=== PATIENT | male | born 1955 | race Caucasian/White ===

== ENCOUNTER 2017-06-07 10:20 | Emergency (ER) | payer SELFPAY | END 2017-06-07 10:39 | disposition left against medical advice (07) | LOC: ER 10:20 | DX: R10.9 Unspecified abdominal pain (principal); I10 Essential (primary) hypertension ==

== ENCOUNTER 2017-06-07 14:44 | Emergency (ER) ==
[~2017-06-07] VITALS: Ht 177.8 cm; Wt 99.8 kg
[2017-06-07] MEDS ORDERED: MORPHINE SULFATE 4 MG/ML SYR IV STA (14:59)
[2017-06-07] MEDS ORDERED: SODIUM CHLORIDE 0.9% 1000ML 1,000 ML IV STA (14:59)
[2017-06-07] MEDS ORDERED: ONDANSETRON HCL INJ 2 MG/ML VIAL IV STA (14:59)
[2017-06-07] MEDS ORDERED: DICYCLOMINE HCL 20 MG/2 ML VIAL IM ONE (15:00)
== END 2017-06-07 15:11 | disposition left against medical advice (07) ==
LOC: ER 14:44
DX: R10.9 Unspecified abdominal pain (principal)

== ENCOUNTER 2018-06-12 23:48 | Emergency (ER) | payer OTHER, MEDICARE ==
[~2018-06-12] VITALS: Ht 177.8 cm; Wt 99.8 kg
--- OUTSIDE RECORDS SUMMARY | 2018-06-12 23:50 | XMS REPORT | Summary of Care ---
Author Author [facility] [place] Organization [facility] [place] Address Unknown Phone Unavailable Encounter HQ Encntr_alirosas(FIN) [id number] Date(s): 07/31/16 - 07/31/16 [facility] [place] [address] [place] [phone] Discharge Disposition: Home or Self Care Attending Physician: Arnie Quintero MD Vital Signs No data available for this section Problem List No data available for this section Allergies, Adverse Reactions, Alerts No data available for this section Medications No data available for this section Results No data available for this section Immunizations No data available for this section Procedures No data available for this section Social History No data available for this section Assessment and Plan No data available for this section
--- OUTSIDE RECORDS SUMMARY | 2018-06-12 23:50 | XMS REPORT | Continuity of Care Document ---
Author Author [facility] Interface Address Unknown Phone Unavailable Problems Problem Status Onset Date Classification Date Reported Comments Source M75.120 - COMPLETE ROTATR-CUFF TEAR/RUPT Active 07/27/2016 [facility] [place] Medications Medication Details Route Status Patient Instructions Ordering Provider Order Date Source Allergies, Adverse Reactions, Alerts Substance Category Reaction Severity Reaction type Status Date Reported Comments Source Immunizations Immunization Date Given Site Status Last Updated Comments Source Results Order Name Results Value Reference Range Date Interpretation Comments Source Vital Signs Vital Sign Value Date Comments Source Encounters Location Location Details Encounter Type Encounter Number Reason For Visit Attending Provider ADM Date DC Date Status Source [facility] [place] Out[facility] Di[facility] Services [id number] Arnie Ann Jr 07/31/2016 2016 [facility] [place] Procedures Procedure Code Date Perfomer Comments Source
[2018-06-13] MEDS ORDERED: KETOROLAC TROMETHAMINE 30 MG/ML VIAL IV STA (01:11)
[2018-06-13] MEDS ORDERED: SODIUM CHLORIDE 0.9% 1000ML 1,000 ML IV SCH (01:15)
--- NOTE | 2018-06-13 01:36 | Diagnostic Imaging Report ---
EXAM: ABDOMEN ACUTE SERIES W/PA CXR DATE: 06/13/2018 12:45 AM INDICATION: Pain COMPARISON: None FINDINGS: Chest: The cardiomediastinal silhouette is unremarkable. There is mild biapical scarring with no focal consolidation. Well-circumscribed calcific density left lung base could represent bone island versus granuloma. Abdomen: No pneumoperitoneum or small bowel obstructive change. Moderate stool burden. Stimulator device and postsurgical changes overlie lower spine. There is a calcific density overlying the liver. Phleboliths overlie pelvis. IMPRESSION: No definite acute finding. See above. Signed by: Dr. Stephan Singh MD on 06/13/2018 1:33 AM
[2018-06-13] MEDS ORDERED: DICYCLOMINE HCL 20 MG/2 ML VIAL IM ONE (02:15)
== END 2018-06-13 03:07 | disposition home or self-care (01) ==
LOC: ER 23:48
DX: R10.32 Left lower quadrant pain (principal); K59.00 Constipation, unspecified; I48.91 Unspecified atrial fibrillation; G89.29 Other chronic pain
CPT/HCPCS: 74022; 96372; 96374; 99283; J0500; J1885; J7030

== ENCOUNTER → 2020-02-04 | Emergency (ER) | payer MEDICARE ==
[~2020-02-04] VITALS: Ht 177.8 cm; Wt 99.8 kg
--- NOTE | 2020-02-04 22:21 | Emergency Department Note ---
History of Present Illnes History of Present Illness Chief Complaint: Chest Pain History of Present Illness This is a 64 year old male ED WITH ANXIETY TO THE TRIAGE WINDOW STATING HIS CHEST FEELS VERY TIGHT. IMMEDIATELY SENT TO A ROOM AND DID STAT EKG- GIVEN TO MD FOR REVIEW-NO STEMI. PATIENT STATES HE IS REALLY UNABLE TO LAY DOWN BECAUSE HE RAN OUT OF HIS [employer] YESTERDAY AND FEELS VERY ANXIOUS. STATES HIS CHEST TIG HTNESS IS SCALE 2/10; HOWEVER, BACK PAIN IS 8/10. PATIENT REPEATEDLY SAYS HE NEEDS SOMETHING FOR PAIN AND FOR ANXIETY; REASSURANCE PROVIDED TO PATIENT-CHARGE NURSE IN ROOM WELL. WHEN INQUIRED ABOUT COVID EXPOSURE PATIENT STATED NO, IN ADDITION, HE STATES THAT IF HE HAPPENS TO HAVE ONE ORDERED HE WILL REFUSE. ALSO, PATIENT STATES HE GOT SO ANXIOUS HE TOOK AN EXTRA DOSE OF CARDIZEM BEFORE COMING TO THE ED. HAS TAKEN TWO TYLENOL#3'S TODAY.PT TOOK 2 TYLENOL #3 AT 230 PM AND SYMPTOMS STARTED ABOUT 1.5 HOURS LATER. Historian: Patient Arrival Mode: Car Onset (how long ago): hour(s) (5) Location: CHEST Quality: TIGHTNESS AND SOB Radiation: Reports non-radiation Severity: mild Onset quality: sudden Duration (how long): hour(s) (5) Timing of current episode: constant Progression: unchanged Chronicity: new Context: Denies recent illness, Denies recent surgery, Denies trauma/injury Relieving factors: none Exacerbating factors: none Associated symptoms: Reports denies other symptoms Treatments prior to arrival: none Past Medical/Family History Physician Review I have reviewed the patient's past medical and family history. Any updates have been documented here. Past Medical History Recent Fever: No Clinical Suspicion of Infectio: No New/Unexplained Change in Ment: No Past Medical History: Hypertension, A-Fib Other Medical History: depression BACK PAIN CHRONIC SCIATIC Other Surgery: spinal fusion discectomy spinal taps chronic back pain 2 rotator cuff surgeries Social History Smoking Cessation: Never Smoker Counseling Performed: No Alcohol Use: None Any Illegal Drug Use: No Physically hurt or threatened: No Other Last Tetanus: unknown Review of Systems Review of Systems Constitutional: Reports no symptoms EENTM: Reports no symptoms Cardiovascular: Reports as per HPI Respiratory: Reports as per HPI Gastrointestinal: Reports no symptoms Genitourinary: Reports no symptoms Musculoskeletal: Reports no symptoms Integumentary: Reports no symptoms Neurological: Reports no symptoms Psychological: Reports no symptoms Endocrine: Reports no symptoms Hematological/Lymphatic: Reports no symptoms Physical Exam Related Data Allergies: Coded Allergies: No Known Allergies (Unverified , 06/07/17) Triage Vital Signs Vital Signs Date Time Temp Pulse Resp B/P (MAP) Pulse Ox O2 Delivery O2 Flow Rate FiO2 02/04/20 21:44 98.7 63 24 187/104 100 02/04/20 22:08 Room Air Vital signs reviewed: Yes Physical Exam CONSTITUTIONAL Constitutional: Present well-developed, Present well-nourished, Present other (ANXIOUS) HENT HENT: Present normocephalic, Present atraumatic, Present oropharynx clear/moist, Present nose normal HENT L/R: Present left ext ear normal, Present right ext ear normal EYES Eyes: Reports PERRL, Reports conjunctivae normal NECK Neck: Present ROM normal PULMONARY Pulmonary: Present effort normal, Present breath sounds normal CARDIOVASCULAR Cardiovascular: Present irregular rhythm, Present heart sounds normal, Present capillary refill normal, Present normal rate GASTROINTESTINAL Abdominal: Present soft, Present nontender, Present bowel sounds normal GENITOURINARY Genitourinary: Present exam deferred SKIN Skin: Present warm, Present dry MUSCULOSKELETAL Musculoskeletal: Present ROM normal NEUROLOGICAL Neurological: Present alert, Present oriented x 3, Present no gross motor or se nsory deficits PSYCHOLOGICAL Psychological: Present mood/affect normal, Present judgement normal Procedures 12 Lead ECG Interpretation ECG Interpretation : ECG: 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 ED physician Date: Feb 04, 2020 Time: 21:41 Rhythm: atrial fibrillation Rate: normal BPM: 65 QRS axis: normal ST segments normal: Yes T waves normal: Yes Other findings: no other findings Clinical Impression: abnormal ECG Assessment & Plan Medical Decision Making MDM PT WITH SOB AND CHEST TIGHTNESS AFTER TAKING 2 TYLENOL #3 AT 230 PM CBC,CMP, EKG, CXR, CARDIAC ENZYMES ORDERED TO EVAL FOR MYOCARDIAL INFARCTION, ELECTROLYTE ABNORMALITY, PNEUMONIA, Assessment & Plan Final Impression: (1) Chest pain (2) Anxiety Depart Disposition: AGAINST MEDICAL ADVICE Last Vital Signs Date Time Temp Pulse Resp B/P (MAP) Pulse Ox O2 Delivery O2 Flow Rate FiO2 02/04/20 22:08 63 24 187/104 100 Room Air 02/04/20 21:44 98.7 STEPHEN BERNABE MD Feb 04, 2020 22:21
--- NOTE | 2020-02-04 22:29 | NUR ---
PATIENT SIGNED AMA FORMS AFTER SEEING MD GIFTY INFORMED IN FULL, CHARGE NURSE IS AWARE. ASKED PATIENT IF THIS NURSE DID ANYTHING TO OFFEND HIM, HE RESPONDED I DID NOT DO ANHYTHING WRONG. OFFERED A RESOLUTION TO HIM STAYING, PATIENT REFUSED. AMA SIGNED IN FULL AND PLACED IN CHART.
--- OUTSIDE RECORDS SUMMARY | 2020-02-04 23:25 | XMS REPORT | Continuity of Care Document ---
Author Author [facility] Organization [facility] Address Unknown Phone Unavailable Care Team Providers Care Realtime Court Reporter Name Role Phone [employer] Unavailable Un available Problems Problem Status Onset Date Classification Date Reported Comments Source M75.120 - COMPLETE ROTATR-CUFF TEAR/RUPT Active 07/27/2016 [facility] [place] Medications No Data Provided for This Section Allergies, Adverse Reactions, Alerts No Known Medication Allergies Immunizations No Data Provided for This Section Results No Data Provided for This Section Pathology Reports No Data Provided for This Section Diagnostic Reports No Data Provided for This Section Consultation Notes No Data Provided for This Section Discharge Summaries No Data Provided for This Section History and Physicals No Data Provided for This Section Vital Signs No Data Provided for This Section Encounters Location Location Details Encounter Type Encounter Number Reason For Visit Attending Provider ADM Date DC Date Status Source [facility] [place] [facility] Di[facility] Services [id number] Arnie Ann Jr 07/31/2016 2016 [facility] [place] Procedures No Data Provided for This Section Assessment and Plan No Data Provided for This Section Plan of Care No Data Provided for This Section Social History Social History Date Source No data available for this section 2016 [facility] [place] Family History No Data Provided for This Section Advance Directives No Data Provided for This Section Functional Status No Data Provided for This Section
--- OUTSIDE RECORDS SUMMARY | 2020-02-04 23:25 | XMS REPORT | Continuity of Care Document ---
Author Author [facility] t Organization [facility] Address [address] [place] [address] Phone Unavailable Care Team Providers Care Information Officer Name Role Phone NO, PCP PCP Unavailable King RONN, Gosia Attphys Unavailable Delmar Franco MD Attphys Mercy Smith MA Attphys Unavailable Maikol BRODY T Marissa Attphys Unavailable Pavel POWER Attphys Unavailable Marino Ann Jr Attphys Payers Payer Name Policy Type Policy Number Effective Date Expiration Date S yvrose MURGUIA MEDICAREHUMANA MEDICARE PPO/PFFS/ERS [id number] 2010 00:00:00 Jc Tom Self Pay [facility] Problems Condition Name Condition Details Condition Category Status Onset Date Resolution Date Last Treatment Date Treating Clinician Comments Source Other chronic pain Other chronic pain Disease Active 2019-03-02 00:00:0 0 Jc Tom Chronic prescription opiate use Chronic prescription opiate use Dis ease Active 2019-03-02 00:00:00 Jc Tom Other skin changes Other skin changes Disease Active 2019-03-02 00:00:0 0 Jc Tom Secondary hypertension Secondary hypertension Disease Active 2018-03-20 00:00:[address] Incomplete tear of left rotator cuff Incomplete tear of left rotator cuff Disease Active 2018-03-20 00:00:00 Jc Tom Rash Rash Disease Active 2018-03-20 00:00:00 Jc Tom Migraine Migraine Disease Active 2017-04-12 00:00:00 Jc Cardonaist Bilateral lumbar radiculopathy Bilateral lumbar radiculopathy Disea se Active 2016-12-20 00:00:00 Jc Cardonaist Myalgia Myalgia Disease Active 2016-12-20 00:00:00 Jc Tom Muscle spasm Muscle spasm Disease Active 2016-12-20 00:00:00 Jc Cardonaist Osteoarthritis of both shoulders Osteoarthritis of both shoulder s Disease Active 2016-12-20 00:00:00 [place] Cervical radicular pain Cervical radicular pain Disease Active 2016-12-20 00:00:[address] Vitamin D deficiency Vitamin D deficiency Disease Active 00:00:00 Jc Cardonaist M75.120 - COMPLETE ROTATR-CUFF TEAR/RUPT M75.120 - COMPLETE ROTATR-CUFF TEAR/RUPT Active 07/27/2016 [facility] [place] Diagnosis Active 2016-07-27 00:01:00 2016-07-31 11:44:00 [facility] Allergies, Adverse Reactions, Alerts Allergy Name Allergy Type Status Severity Reaction(s) Onset Date Inacti ve Date Treating Clinician Comments Source No Known Allergies DA Active U 2018-06-11 00:00:00 [facility] Gabapentin Propensity to adverse reactions to drug Active Other (See Comments) 2016-12-20 00:00:00 [place] bad emotionally Jc Tom Social History Social Habit Start Date Stop Date Quantity Comments Source History of tobacco use Cigarette Smoker [facility] Sex Assigned At Dorothy Tom Exposure to SARS-CoV-2 (event) Not sure [place] [facility] Cigarettes smoked current (pack per day) - Reported 00:00:00 2019-05-23 00:00:00 [facility] Tobacco use and exposure 2019-05-23 00:00:00 2019-05-23 00:00:00 Form er user [place] [facility] Tobacco Comment 2016-12-20 00:00:00 2016-12-20 00:00:00 stopped thirty years ago Jc Tom Social History 2016 04:59:00 2016 04:59:00 [facility] Sm[facility] Status Start Date Stop Date Source Current every day smoker 2019-05-23 00:00:00 Dorothy Tom Medications Ordered Medication Name Filled Medication Name Start Date Stop Da te Current Medication? Ordering Clinician Indication Dosage Frequency Signature (SIG) Comments Components Source tiZANidine (ZANAFLEX) 4 MG tablet 2020-01-28 00:00:00 Ye s 4mg Q.[id number] Take 1 tablet (4 mg total) by mouth 3 (t hree) times a day. Jc Tom traMADoL (ULTRAM) 50 mg tablet 2020-01-24 00:00:00 2020-01-09 1 00:00:00 No chronic pain chronic pain. 1-2 tabs PO Q8H PRN pain Jc Tom acetaminophen-codeine (TYLENOL WITH CODEINE #3) 300-30 mg pe r tablet 2020-01-11 00:00:00 2020-01-18 23:59:00 No acute pain 1{tbl} Q4H Take 1 tablet by mouth every 4 (four) hours as needed for moderate pain for up to 7 days .acute pain. Jc Tom HYDROcodone-acetaminophen (NORCO) 10-325 mg per tablet 2020-01-11 00:00:00 2020-01-02 00:00:00 No chronic pain 2{tbl} Q8H Jacques e 2 tablets by mouth every 8 (eight) hours as needed for moderate pain for up to 30 days .chronic pain. Jc Tom HYDROcodone-acetaminophen (NORCO) 10-325 mg per tablet 2020-01-10 00:00:00 2020-01-11 00:00:00 No chronic pain 2{tbl} Q8H Jacques e 2 tablets by mouth every 8 (eight) hours as needed for moderate pain for up to 30 days .chronic pain. Jc Tom HYDROcodone-acetaminophen (NORCO) 10-325 mg per tablet 2019-12-12 00:00:00 2020-01-28 00:00:00 No chronic pain 2{tbl} Q8H Jacques e 2 tablets by mouth every 8 (eight) hours as needed for moderate pain for up to 30 days .chronic pain. Jc Tom gabapentin (NEURONTIN) 300 mg capsule 2019-11-28 00:00:00 Y es Take three capsules three times a day Jc Tom traMADoL (ULTRAM) 50 mg tablet 2019-11-28 00:00:00 2020-08-2 6 00:00:00 No chronic pain chronic pain. 1-2 tabs PO Q8H PRN pain Jc Tom gabapentin (NEURONTIN) 300 mg capsule 2019-11-16 00:00:00 Y es TAKE 3 CAPSULES (900 MG) THREE TIMES A DAY [place] HYDROcodone-acetaminophen (NORCO) 10-325 mg per tablet 2019-11-12 00:00:00 2019-11-28 00:00:00 No chronic pain 2{tbl} Q8H Jacques e 2 tablets by mouth every 8 (eight) hours as needed for moderate pain for up to 30 days .chronic pain. Jc Tom HYDROcodone-acetaminophen (NORCO) 10-325 mg per tablet 2019-11-07 00:00:00 2019-11-12 00:00:00 No chronic pain 2{tbl} Q8H Jacques e 2 tablets by mouth every 8 (eight) hours as needed for moderate pain for up to 30 days .chronic pain. Jc Tom tiZANidine (ZANAFLEX) 4 MG tablet 2019-10-08 00:00:00 2019 00:00:00 No 4mg Q.[id number] Take 1 ta blet (4 mg total) by mouth 3 (three) times a day. Jc Tom traMADoL (ULTRAM) 50 mg tablet 2019-10-08 00:00:00 2019-11-08 2 00:00:00 No chronic pain 50mg Q6H Take 1 tablet (50 mg total) by mouth every 6 (six) hours as needed for moderate pain for up to 30 days .chronic pain. Jc Tom gabapentin (NEURONTIN) 300 mg capsule 2019-10-08 00:00 :00 2019-11-16 00:00:00 No TAKE 3 CAPSULES BY MOUTH THREE TIMES FARAZ LY cJ Tom gabapentin (NEURONTIN) 300 mg capsule 2019-10-08 00:00 :00 2019-11-07 00:00:00 No TAKE 3 CAPSULES BY MOUTH THREE TIMES FARAZ LY Jc Tom HYDROcodone-acetaminophen (NORCO) 10-325 mg per tablet 2019-10-08 00:00:00 2019-11-07 00:00:00 No chronic pain 2{tbl} Q6H Jacques e 2 tablets by mouth every 6 (six) hours as needed for moderate pain for up to 30 days .chronic pain. Max Daily Amount: 8 tablets Jc gill gabapentin (NEURONTIN) 300 mg capsule 2019-10-08 00:00 :2019-10-08 00:00:00 No TAKE 3 CAPSULES BY MOUTH THREE TIMES FARAZ LY Jc Tom HYDROcodone-acetaminophen (NORCO) 10-325 mg per tablet 2019-09-14 00:00:2019-11-07 00:00:00 No chronic pain 2{tbl} Q8H Jacques e 2 tablets by mouth every 8 (eight) hours as needed for moderate pain for up to 30 days .chronic pain. Jc Tom HYDROcodone-acetaminophen (NORCO) 10-325 mg per tablet 2019-09-14 00:00:00 2019-09-10 00:00:00 No chronic pain 2{tbl} Q8H Jacques e 2 tablets by mouth every 8 (eight) hours as needed for moderate pain for up to 30 days .chronic pain. Jc Tom gabapentin (NEURONTIN) 300 mg capsule 2019-09-13 00:00 :00 2019-10-08 00:00:00 No TAKE 3 CAPSULES BY MOUTH THREE TIMES FARAZ LY Jc Tom traMADoL (ULTRAM) 50 mg tablet 2019-09-10 00:00:00 00:00:00 No chronic pain 50mg Q6H Take 1 tablet (50 mg total) by mouth every 6 (six) hours as needed for moderate pain for up to 30 days .chronic pain. Jc Tom HYDROcodone-acetaminophen (NORCO) 10-325 mg per tablet 2019-09-10 00:00:00 2019-10-08 00:00:00 No chronic pain 2{tbl} Q6H Jacques e 2 tablets by mouth every 6 (six) hours as needed for moderate pain for up to 30 days .chronic pain. Max Daily Amount: 8 tablets Jc gill HYDROcodone-acetaminophen (NORCO) 10-325 mg per tablet 2019-08-29 00:00:00 2019-09-10 00:00:00 No chronic pain 2{tbl} Q8H Jacques e 2 tablets by mouth every 8 (eight) hours as needed for moderate pain for up to 30 days .chronic pain. Jc Tom gabapentin (NEURONTIN) 300 mg capsule 2019-08-14 00:00 :00 2019-09-13 00:00:00 No Take three po tid [place] traMADoL (ULTRAM) 50 mg tablet 2019-08-14 00:00:00 4 00:00:00 No chronic pain 50mg Q6H Take 1 tablet (50 mg total) by mouth every 6 (six) hours as needed for moderate pain for up to 30 days .chronic pain. Jc Tom HYDROcodone-acetaminophen (NORCO) 10-325 mg per tablet 2019-08-14 00:00:00 2019-08-28 00:00:00 No chronic pain 1{tbl} Q6H Jacques e 1 tablet by mouth every 6 (six) hours as needed for moderate pain for up to 30 days .chronic pain. Max Daily Amount: 4 tablets Jc gill traMADoL (ULTRAM) 50 mg tablet 2019-08-13 00:00:00 4 00:00:00 No chronic pain chronic pain. TAKE 1 TO 2 TABLET S EVERY EIGHT HOURS NEEDED Jc Tom tiZANidine (ZANAFLEX) 4 MG tablet 2019-05-23 00:00:00 2019 00:00:00 No 4mg Q.[id number] Take 1 ta blet (4 mg total) by mouth 3 (three) times a day. Jc Tom gabapentin (NEURONTIN) 800 mg tablet 2019-05-23 00:00: 00 2019-09-13 00:00:00 No 800mg Q.4781749804170621341Z Take 1 tablet (800 mg total) by mouth 3 (three) times a day. Jc Tom traMADol (ULTRAM) 50 mg tablet 2019-05-23 00:00:00 6 00:00:00 No chronic pain chronic pain. TAKE 1 TO 2 TABLET S EVERY EIGHT HOURS NEEDED Jc Tom gabapentin (NEURONTIN) 800 mg tablet 2019-03-02 00:00: 2019-05-23 00:00:00 No 800mg Q.2999547426529003448K Take 1 tablet (800 mg total) by mouth 3 (three) times a day. Jc Tom tiZANidine (ZANAFLEX) 4 MG tablet 2019-03-02 00:00:00 2019 00:00:00 No 4mg Q.2349421091326071374A Take 1 ta blet (4 mg total) by mouth 3 (three) times a day. Jc Tom traMADol (ULTRAM) 50 mg tablet 2019-03-02 00:00:00 2019-05-09 00:00:00 No chronic pain chronic pain. TAKE 1 TO 2 TABLET S EVERY EIGHT HOURS NEEDED Jc Tom traMADol (ULTRAM) 50 mg tablet 2018-12-04 00:00:00 2019-03-02 00 :00:00 No TAKE 1 TO 2 TABLETS EVERY EIGHT HOURS NEEDED Jc Tom gabapentin (NEURONTIN) 800 mg tablet 2018-12-04 00:00: 00 2019-03-02 00:00:00 No 800mg Q.2575827626549045965I Take 1 tablet (800 mg total) by mouth 3 (three) times a day. Jc Tom tiZANidine (ZANAFLEX) 4 MG tablet 2018-12-04 00:00:00 2018 00:00:00 No 4mg Q.5994023352200990033H Take 1 ta blet (4 mg total) by mouth 3 (three) times a day. Jc Tom tiZANidine (ZANAFLEX) 4 MG tablet 2018-11-06 00:00:00 2019 00:00:00 No TAKE 1 TABLET THREE TIMES A DAY Jc Tom naloxone 4 mg/actuation spray,non-aerosol 2018-06-19 00:00:00 Yes One spray in one nostril, may repeat every 2 to 3 minutes in alternating nostrils until medical assistance is available Jc Tom ibuprofen (ADVIL,MOTRIN) 200 MG tablet 2018-03-20 14:16:49 Yes 600mg Q8H Take 600 mg by mouth every 8 (eight) hours as needed for mild pa in. Jc Tom HYDROcodone-acetaminophen (NORCO) 10-325 mg per tablet 2017-12-28 00:00:00 2019-08-28 00:00:00 No 2{tbl} Q8H Take 2 tablets by mouth every 8 (eight) hours as needed for moderate pain for up to 90 days Earliest Fill Date: 12/28/17. Jc Tom minoxidil (LONITEN) 2.5 MG tablet 2017-09-12 00:00:00 Yes TK 1 T PO QD Jc Tom XARELTO 20 mg tablet 2017-08-05 00:00:00 Yes Jc Tom terazosin (HYTRIN) 2 MG capsule 2017 00:00:00 Yes TK ONE C PO BID Jc Tom clonIDINE HCl (CATAPRES) 0.2 MG tablet 2017-07-29 00:00:00 Yes Jc Tom QUEtiapine (SEROquel) 300 MG tablet 2017-03-05 00:00:00 Yes TK 1 T PO QHS Jc Tom losartan (COZAAR) 100 MG tablet 2017-01-13 00:00:00 Yes 100mg QD Take 100 mg by mouth once daily. Jc thomas diltiazem CD (CardIZEM CD) 240 MG 24 hr capsule 2016-12-23 00:00 :00 Yes 240mg QD Take 240 mg by mouth once daily. Jc Tom Vital Signs Vital Name Observation Time Observation Value Comments Source Systolic blood pressure 2019-05-23 13:17:00 125 mm[Hg] Jc Tom Diastolic blood pressure 2019-05-23 13:17:00 81 mm[Hg] Jc Tom Heart rate 2019-05-23 13:17:00 43 /min Jc Tom Procedures Procedure Date / Time Performed Performing Clinician [facility] e DRUG SCREEN 2019-05-29 00:00:00 Lacey Franco DRUG SCREEN 2019-03-08 00:00:00 Lacey Franco Plan of Care Planned Activity Planned Date Details Comments Source Future Scheduled Test 2019-12-08 00:00:00 INFLUENZA VACCINE [code = INFLUENZA VACCINE] Jc Tom Future Scheduled Test 2006 00:00:00 COLONOSCOPY SCREEN ING [code = COLONOSCOPY SCREENING] Jc Tom Future Scheduled Test 2006 00:00:00 SHINGLES VACCINES (#1) [code = SHINGLES VACCINES (#1)] Jc Tom Medication 2020-02-20 00:00:00 traMADoL (ULTRAM) 50 mg tablet [co de = 203398] Jc Tom Medication 2020-02-06 00:00:00 HYDROcodone-acetamin ophen (NORCO) 10-325 mg per tablet [code = 665229] Jc Tom Encounters Start Date/Time End Date/Time Encounter Type Admission Type Attendi ng Clinicians Care Facility Care Department Encounter ID Source 2020-01-28 00:00:00 2020-01-28 00:00:00 Outpatient [facility] [id number] [facility] 2020-01-18 00:00:00 2020-01-18 00:00:00 Outpatient [facility]ANCO[facility] [id number] [facility] 2020-01-02 00:00:00 2020-01-02 00:00:00 Outpatient FRANCO, [facility] [id number] [facility] 2019-11-28 00:00:00 2019-11-28 00:00:00 Outpatient FRANCO, [facility] [id number] [facility] 2019-11-07 00:00:00 2019-11-07 00:00:00 Outpatient FRANCO, [facility] [id number] [facility] 2019-10-08 00:00:00 2019-10-08 00:00:00 Outpatient FRANCO, [facility] [id number] [facility] 2019-09-10 00:00:00 2019-09-10 00:00:00 Outpatient FRANCO, [facility] [id number] [facility] 2019-08-14 00:00:00 2019-08-14 00:00:00 Outpatient FRANCO, [facility] [id number] [facility] 2018-06-12 23:48:00 2018-06-13 03:07:00 Departed Emergency Room 1 PAMELA POWER [facility] [id number] [facility] 2017-06-07 14:44:00 2017-06-07 15:11:00 Departed Emergency Room [facility] [id number] [facility] 2017-06-07 10:20:00 2017-06-07 10:39:00 Departed Emergency Room [facility] [id number] [facility] 2016-07-31 11:35:00 2016-07-31 23:59:00 Outpatient Arnie Ann [facility] [id number] Results Test Description Test Time Test Comments Results Result Comments Source ABDOMEN ACUTE SERIES W/PA CXR 2018-06-13 01:31:00 [place] [address] Patient Name: KATERIN NOLASCO MR #: [id number] : 1955 Age/Sex: 62/M Req #: [id number] Adm Physician: Ordered by: PAMELA POWER MD Report #: [id number] Location: ER Room/Bed: Procedure: [id number] DX/ABDOMEN ACUTE SERIES W/PA CXR Exam Date: Exam Time: REPORT STATUS: Signed EXAM: ABDOMEN ACUTE SERIES W/PA CXR DATE: 06/13/2018 12:45 AM INDICATION: Pain COMPARISON: None FINDINGS: Chest: The cardiomediastinal silhouette is unremarkable. There is mild biapical scarring with no focal consolidation. Well-circumscribed calcific density left lung base could represent bone island versus granuloma. Abdomen: No pneumoperitoneum or small bowel obstructive change. Moderate stool burden. Stimulator device and postsurgical changes overlie lower spine. There is a calcific density overlying the liver. Phleboliths overlie pelvis. IMPRESSION: No definite acute finding. See above. Signed by: Dr. Tomas Singh MD on 06/13/2018 1:33 AM Dictated By: TOMAS SINGH MD 2 Transcribed By: HONG on 06/13/18132 COPY TO: PAMELA POWER MD DRUGS OF ABUSE SCREEN 2018-06-11 14:35:00 Test Item UA PH DIPSTICK (test code = MELINA) 7.0 5.0-8.0 URN COCAINE (test code = COCAURN) NEGATIVE <300 ng/mL URN CANNABINOIDS (test code = CANNABURN) NEGATIVE <50 ng/mL URN AMPHETAMINE (test code = AMPHETURN) NEGATIVE <1000 ng/mL URN BARBITURATE (test code = BARBITURN) NEGATIVE <200 ng/mL URN BENZODIAZEPINE (test code = BENZOURN) NEGATIVE <200 ng/mL URN OPIATES (test code = OPIATURN) POSITIVE <300 ng/mL A This test provides only a preliminary test result. A morespecific alternate chemical method must be used in order toobtain a confirmed analytical result. Gas chromatography/mass spectrometry (GC/MS) is thepreferred confirmatory method. Other chemical confirmationmethods are available. Clinical consideration and professional judgment should be applied to any drug of abusetest result, particularly when preliminary positive resultsare used.Unconfirmed screening results must not be used fornon-medical purposes (e.g., employment testing, legaltesting). URN PHENCYCLIDINE (PCP) (test code = PHENCURN) NEGATIVE <25 ng/ mL URN METHADONE (test code = METHAURN) NEGATIVE <300 ng/mL - CT ABD PELVIS [id number] 14:09:00 Name: JOSUÉ NOLASCO [facility] : 1955 Age/S: 62 / M [address] [facility] Unit #: [id number] Loc: [place] [address] Phys: Federico Tuttle MD Acct: [id number] Dis Date: Status: [facility] PHONE #: [phone] Exam Date: 06/11/2018 1323 FAX #: [phone] Reason: refractory nausea/vomiting EXAMS: CPT CODE: [id number] CT ABD PELVIS W/CONT 94345 HISTORY: refractory nausea/vomiting TECHNIQUE: Immediate and delayed [address] images were obtained through the abdomen and pelvis after IV administration of 100 mL of Isovue-370 contrast. Sagittal and coronal reformatted images were generated. Automated exposure control for dose reduction. COMPARISON: None FINDINGS: Lung bases are clear. Normal heart size. Liver, gallbladder, pancreas, spleen, adrenal glands, and kidneys are unremarkable. Limited evaluation the GI tract without oral contrast. Stomach and small bowel are unremarkable. Proximal colon fecal retention. No free air or free fluid. No lymphadenopathy. Aortoiliac atherosclerotic vascular calcification without aneurysm. Mildly distended urinary bladder. Seminal vesicles and prostate gland are unremarkable. No pelvic free fluid. Healing posterolateral right 9th and 10th rib fractures. L5-S1 fusion with posterior decompression. Degenerative changes of the spine, sacroiliac joints, and hips. IMPRESSION: No acute intra-abdo ina process. at 1409 Reported and signed by: Keyonna Garrison D.O. PAGE 1 Signed Report (CONTINUED) Name: JOSUÉ NOLASCO [facility] : 1955 Age/S: 62 / M [address] [facility] Unit #: [id number] Loc: [place] [address] Phys: Federico Tuttle MD Acct: [id number] Dis Date: Status: DEP ER PHONE #: [phone] Exam Date: 06/11/2018 1323 FAX #: [phone] Reason: refractory nausea/vomiting EXAMS: CPT CODE: [id number] CT ABD PELVIS W/CONT 80670 <Continued> CC: Gentry Dougherty; Federico Tuttle MD Technologist:RT LARRY(R) CT CTDI: DLP: Trnscb Date/Time: 06/11/2018 (140) [email or web address] Orig Print D/T: S: 06/11/2018 (1412) CTDI: DLP: PAGE 2 Signed Report - CT HD/BR W W/O [id number] 13:45:00 Name: JOSUÉ NOLASCO [facility] : 1955 Age/S: 62 / M [address] [facility] Unit #: [id number] Loc: [place] [address] Phys: Federico Tuttle MD Acct: [id number] Dis Date: Status: REG ER PHONE #: [phone] Exam Date: 06/11/2018 1309 FAX #: [phone] Reason: refractory nausea/vomiting EXAMS: CPT CODE: [id number] CT HD/BR W W/O CONT 87206 HISTORY: refractory nausea/vomiting TECHNIQUE: Pre- and postcontrast 2.[address] of the head. Examination acquired within 24 hours of arrival. Automated exposure control for dose reduction. COMPARISON: None FINDINGS: No abnormal enhancement. No acute hemorrhage. No CT evidence of acute infarct. No intracranial mass or mass effect. No hydrocephalus. No extra-axial fluid collection. Left maxillary mucoperiosteal thickening. Mastoid air cells and middle ear cavities are clear. Orbital contents are unremarkable. Calvarium and skull base are intact. IMPRESSION: No acute intracranial process. No mass or mass effect. No abnormal enhancement. at 1345 Reported and signed by: Josefa Garrison D.O. CC: Gentry Dougherty; Federico Tuttle MD Technologist:DUDLEY ELI RT(R) CT CTDI: DLP: Trnscb Date/Time: 06/11/2018 (6475) [email or web address] Orig Print D/T: S: 06/11/2018 (5663) CTDI: DLP: PAGE 1 Signed Report DRUGS OF ABUSE SCREEN [id number] 13:31:00* Test Item Value Reference Range Interpretation Comments UA PH DIPSTICK (test code = MELINA) 5.0-8.0 URN COCAINE (test code = COCAURN) NEGATIVE <300 ng/mL URN CANNABINOIDS (test code = CANNABURN) NEGATIVE <50 ng/mL URN AMPHETAMINE (test code = AMPHETURN) NEGATIVE <1000 ng/mL URN BARBITURATE (test code = BARBITURN) NEGATIVE <200 ng/mL URN BENZODIAZEPINE (test code = BENZOURN) NEGATIVE <200 ng/mL URN OPIATES (test code = OPIATURN) POSITIVE <300 ng/mL A This test provides only a preliminary test result. A morespecific alternate chemical method must be used in order toobtain a confirmed analytical result. Gas chromatography/mass spectrometry (GC/MS) is thepreferred confirmatory method. Other chemical confirmationmethods are available. Clinical consideration and professional judgment should be applied to any drug of abusetest result, particularly when preliminary positive resultsare used.Unconfirmed screening results must not be used fornon-medical purposes (e.g., employment testing, legaltesting). URN PHENCYCLIDINE (PCP) (test code = PHENCURN) NEGATIVE <25 ng/ mL URN METHADONE (test code = METHAURN) NEGATIVE <300 ng/mL URINALYSIS [id number] 13:06:00* Test Item Value Reference Range Interpretation Comments UA COLOR (test code = COLU) STRAW YELLOW UA APPEARANCE (test code = APPU) CLEAR CLEAR UA GLUCOSE DIPSTICK (test code = DGLUU) NEGATIVE mg/dL NEGATIVE UA BILIRUBIN DIPSTICK (test code = BILU) NEGATIVE mg/dL NEGATIVE UA KETONE DIPSTICK (test code = KETU) Negative mg/dL NEGATIVE UA SPECIFIC GRAVITY (test code = SGU) 1.003 1.001-1.035 UA BLOOD DIPSTICK (test code = MARC) 1+ (Small) NEGATIVE A UA PH DIPSTICK (test code = MELINA) 7.0 5.0-8.0 UA PROTEIN DIPSTICK (test code = PROU) Negative mg/dL NEGATIVE UA UROBILINIOGEN DIPSTICK (test code = URO) NEGATIVE mg/dL NEGATIVE UA NITRITE DIPSTICK (test code = BESSIE) NEGATIVE NEGATIVE UA LEUKOCYTE ESTERASE W REFLEX (test code = LEUUR) NEGATIVE NEG ATIVE UA WBC (test code = WBCU) 0-5 #/HPF 0-5 UA RBC (test code = RBCU) 0-2 #/HPF 0-5 UA EPITHELIAL CELLS (test code = EPIU) FEW per HPF FEW Urine Source? Clean CatchTROPONIN I [id number] 13:06:00* Test Item Value Reference Range Interpretation Comments TROPONIN I RAPID (test code = TROPIRAP) 0.00 ng/mL <0.08 Please Note New Reference Range 0.00-0.079 ng/mL - Negative>or= 0.08 ng/mL - Positive The use of serial sampling and testing protocol is arecommended practice.An elevated troponin level alone is often not sufficient fordiagnosis of myocardial infarction. Troponin results obtained by different assays may vary.Evaluation of the extent of myocardial damage based onincrease of troponin would be valid only if similarmethodology is used. [id number] 12:47:00* Test Item Value Reference Range Interpretation Comments MAGNESIUM (test code = MAG) 2.1 mg/dL 1.8-2.4 N BASIC METABOLIC [id number] 12:18:00* Test Item Value Reference Range Interpretation Comments SODIUM (test code = NA) 136 mmol/L 136-145 N POTASSIUM (test code = K) 3.6 mmol/L 3.5-5.1 N CHLORIDE (test code = CL) 102.0 mmol/L 98-107 N CARBON DIOXIDE (test code = CO2) 25.0 mmol/L 21-32 N ANION GAP (test code = GAP) 12.6 10-20 N GLUCOSE (test code = GLU) 87 mg/dL 74-106 N BLOOD UREA NITROGEN (test code = BUN) 9 mg/dL 7-18 N GLOMERULAR FILTRATION RATE (test code = GFR) 52 mL/min >=60 Estimated GFR by using Modified MDRD formula.Chronic kidney disease is defined as either kidney damageor GFR <60 mL/min/1.73 m2 for >3 months. CREATININE (test code = CREAT) 1.40 mg/dL 0.7-1.3 H BUN/CREATININE RATIO (test code = BUN/CREA) 6.7 10-20 L CALCIUM (test code = CA) 9.2 mg/dL 8.5-10.1 N HEPATIC FUNCTION [id number] 12:18:00* Test Item Value Reference Range Interpretation Comments TOTAL PROTEIN (test code = PROT) 8.1 gram/dL 6.4-8.2 N ALBUMIN (test code = ALB) 4.3 g/dL 3.4-5.0 N GLOBULIN (test code = GLOB) 3.8 gram/dL 2.7-4.2 N ALBUMIN/GLOBULIN RATIO (test code = A/G) 1.1 0.75-1.50 N BILIRUBIN TOTAL (test code = BILT) 0.40 mg/dL 0.0-1.0 N BILIRUBIN DIRECT (test code = BILD) 0.14 mg/dL 0.0-0.20 N SGOT/AST (test code = AST) 13 IUnit/L 15-37 L SGPT/ALT (test code = ALT) 19 IUnit/L 12-78 N ALKALINE PHOSPHATASE TOTAL (test code = ALKP) 134 IUnit/L 45-117 H Note change in reference range due to change in reagent. [id number] 12:18:00* Test Item Value Reference Range Interpretation Comments LIPASE (test code = LIP) 75 U/L 73.0-393.0 N [id number] 12:18:00* Test Item Value Reference Range Interpretation Comments TROPONIN-I (test code = TROPI) <0.015 ng/mL 0-0.045 N CBC W/O [id number] 11:40:00* Test Item Value Reference Range Interpretation Comments WHITE BLOOD CELL (test code = WBC) 9.5 K/mm3 4.5-12.5 N RED BLOOD CELL (test code = RBC) 5.21 mill/mm3 4.0-5.8 N HEMOGLOBIN (test code = HGB) 16.3 gram/dL 13.0-17.5 N HEMATOCRIT (test code = HCT) 48.0 % 42.0-52.0 N MEAN CELL VOLUME (test code = MCV) 92.1 fL 80-98 N MEAN CELL HGB (test code = MCH) 31.3 picogram 27.0-33.0 N MEAN CELL HGB CONCETRATION (test code = MCHC) 34.0 gram/dL 33.0-36. 0 N RED CELL DISTRIBUTION WIDTH (test code = RDW) 13.4 % 11.6-16. 2 N PLATELET COUNT (test code = PLT) 357 K/mm3 150-450 N MEAN PLATELET VOLUME (test code = MPV) 9.9 fL 6.7-11.0 N CBC W/O [id number] 11:39:00* Test Item Value Reference Range Interpretation Comments WHITE BLOOD CELL (test code = WBC) K/mm3 4.5-12.5 RED BLOOD CELL (test code = RBC) mill/mm3 4.0-5.8 HEMOGLOBIN (test code = HGB) 16.3 gram/dL 13.0-17.5 N HEMATOCRIT (test code = HCT) 48.0 % 42.0-52.0 N MEAN CELL VOLUME (test code = MCV) fL 80-98 MEAN CELL HGB (test code = MCH) picogram 27.0-33.0 MEAN CELL HGB CONCETRATION (test code = MCHC) gram/dL 33.0-36. 0 RED CELL DISTRIBUTION WIDTH (test code = RDW) % 11.6-16. 2 PLATELET COUNT (test code = PLT) K/mm3 150-450 MEAN PLATELET VOLUME (test code = MPV) fL 6.7-11.0 - XR CHEST 1 [id number] 11:37:00 FAX: Federico Tuttle MD [phone] [place]: St: PRE Name: KATERIN ROBIN [facility] : [birth year] Age/S: 62/M [address] [facility] Unit #: [id number] Loc: G[place] [address] Phys: Federico Tuttle MD Acct: [id number] Dis Date: Status: PRE ER PHONE #: [phone] Exam Date: 06/11/2018 1136 FAX #: [phone] Reason: CHEST PAIN EXAMS: CPT CODE: [id number] XR CHEST 1 V 20149 HISTORY: CHEST PAIN TECHNIQUE: AP chest x-ray COMPARISON: None FINDINGS: No airspace consolidation or pleural effusion. [Lung base calcifi ed granuloma. Normal heart size. Mediastinal silhouette is unremarkable. Visualized osseous structures are grossly intact. IMPRESSIO N: No radiographic evidence of acute cardiopulmonary process. at 1137 Reported and signed by: Josefa Garrison D.O. CC: Federico Tuttle MD Technologist: ALISA RODAS RT Trnscrd Date/Time/By: 06/11/19 19 (1137) : By: [email or web address] Orig Print D/T: S: 06/11/2018 (9821) PAGE 1 Signed Report
--- OUTSIDE RECORDS SUMMARY | 2020-02-04 23:25 | XMS REPORT | Clinical Summary ---
Author Author [facility] [place] [facility] Address Unknown Phone Unavailable Care Team Providers Care Commercial Electrician Name Role Phone Felicita Ortiz MD PCP [phone] Allergies Comments Active Allergy Reactions Severity Noted Date [place] bad emotionally Gabapentin Other (See High 12/20/2016 Comments) Medications End Date Status Medication Sig Dispensed Refills Start Date Active ibuprofen (ADVIL,MOTRIN) Take 600 mg 0 200 MG tablet by mouth every 8 (eight) hours as needed for mild pain. Active diltiazem CD (CardIZEM Take 240 mg 0 01 CD) 240 MG 24 hr capsule by mouth once 7 daily. Active losartan (COZAAR) 100 MG Take 100 mg 1 01/13 tablet by mouth once 7 daily. Active QUEtiapine (SEROquel) 300 TK 1 T PO 2 02/07 8/201 MG tablet QHS 7 Active clonIDINE HCl (CATAPRES) 0 0.2 MG tablet 8 Active terazosin (HYTRIN) 2 MG TK ONE C PO 3 capsule BID 8 Active minoxidil (LONITEN) 2.5 TK 1 T PO QD 3 MG tablet 8 Active XARELTO 20 mg tablet 0 8 Active naloxone 4 mg/actuation One spray in 2 each 1 0 spray,non-aerosol one nostril, 9 may repeat every 2 to 3 minutes in alternating nostrils until medical assistance is available Active gabapentin (NEURONTIN) TAKE 3 270 capsule 0 300 mg capsule CAPSULES (900 0 MG) THREE TIMES A DAY Active gabapentin (NEURONTIN) Take three 270 capsule 5 300 mg capsule capsules 0 three times a day 03/23/2020 Active traMADoL (ULTRAM) 50 mg chronic pain. 180 tablet 1 tabletIndications: 1-2 tabs PO 0 chronic pain Q8H PRN pain Active tiZANidine (ZANAFLEX) 4 Take 1 tablet 90 tablet 2 MG tablet (4 mg total) 0 by mouth 3 (three) times a day. 03/07/2020 Active HYDROcodone-acetaminophen Take 2 180 tablet 0 (NORCO) 10-325 mg per tablets by 0 tabletIndications: mouth every 8 chronic pain (eight) hours as needed for moderate pain for up to 30 days .chronic pain. 08/28/2019 Discontinued HYDROcodone-acetaminophen Take 2 180 tablet 0 (NORCO) 10-325 mg per tablets by 8 tablet mouth every 8 (eight) hours as needed for moderate pain for up to 90 days Earliest Fill Date: 12/28/17. 09/10/2019 Discontinued tiZANidine (ZANAFLEX) 4 TAKE 1 TABLET 90 tablet 0 MG tablet THREE TIMES A 9 DAY 03/02/2019 Discontinued (Reorder) traMADol (ULTRAM) 50 mg TAKE 1 TO 2 180 tablet 2 tablet TABLETS EVERY 9 EIGHT HOURS NEEDED 03/02/2019 Discontinued (Reorder) gabapentin (NEURONTIN) Take 1 tablet 90 tablet 3 0 800 mg tablet (800 mg 9 total) by mouth 3 (three) times a day. 03/02/2019 Discontinued (Reorder) tiZANidine (ZANAFLEX) 4 Take 1 tablet 90 tablet 2 MG tablet (4 mg total) 9 by mouth 3 (three) times a day. 05/23/2019 Discontinued (Reorder) gabapentin (NEURONTIN) Take 1 tablet 90 tablet 3 1 800 mg tablet (800 mg 9 total) by mouth 3 (three) times a day. 05/23/2019 Discontinued (Reorder) tiZANidine (ZANAFLEX) 4 Take 1 tablet 90 tablet 2 MG tablet (4 mg total) 9 by mouth 3 (three) times a day. 05/23/2019 Discontinued (Reorder) traMADol (ULTRAM) 50 mg chronic pain. 180 tablet 2 tabletIndications: TAKE 1 TO 2 9 chronic pain TABLETS EVERY EIGHT HOURS NEEDED 08/13/2019 Discontinued (Reorder) traMADol (ULTRAM) 50 mg chronic pain. 180 tablet 2 tabletIndications: TAKE 1 TO 2 0 chronic pain TABLETS EVERY EIGHT HOURS NEEDED 10/08/2019 Discontinued (Reorder) tiZANidine (ZANAFLEX) 4 Take 1 tablet 90 tablet 2 MG tablet (4 mg total) 0 by mouth 3 (three) times a day. 09/13/2019 Discontinued (Dose adjustmen t) gabapentin (NEURONTIN) Take 1 tablet 90 tablet 3 0 800 mg tablet (800 mg 0 total) by mouth 3 (three) times a day. 09/10/2019 Discontinued traMADoL (ULTRAM) 50 mg chronic pain. 180 tablet 2 tabletIndications: TAKE 1 TO 2 0 chronic pain TABLETS EVERY EIGHT HOURS NEEDED 09/10/2019 Discontinued (Reorder) traMADoL (ULTRAM) 50 mg Take 1 tablet 180 tablet 0 tabletIndications: (50 mg total) 0 chronic pain by mouth every 6 (six) hours as needed for moderate pain for up to 30 days .chronic pain. 09/13/2019 Discontinued gabapentin (NEURONTIN) Take three po 270 capsule 0 0 300 mg capsule tid 0 08/28/2019 Discontinued HYDROcodone-acetaminophen Take 1 tablet 180 tablet 0 (NORCO) 10-325 mg per by mouth 0 tabletIndications: every 6 (six) chronic pain hours as needed for moderate pain for up to 30 days .chronic pain. Max Daily Amount: 4 tablets 09/10/2019 Discontinued (Reorder) HYDROcodone-acetaminophen Take 2 180 tablet 0 (NORCO) 10-325 mg per tablets by 0 tabletIndications: mouth every 8 chronic pain (eight) hours as needed for moderate pain for up to 30 days .chronic pain. 09/10/2019 Discontinued HYDROcodone-acetaminophen Take 2 180 tablet 0 (NORCO) 10-325 mg per tablets by 0 tabletIndications: mouth every 8 chronic pain (eight) hours as needed for moderate pain for up to 30 days .chronic pain. 10/08/2019 Discontinued (Reorder) traMADoL (ULTRAM) 50 mg Take 1 tablet 180 tablet 0 tabletIndications: (50 mg total) 0 chronic pain by mouth every 6 (six) hours as needed for moderate pain for up to 30 days .chronic pain. 11/07/2019 Discontinued (Reorder) HYDROcodone-acetaminophen Take 2 180 tablet 0 (NORCO) 10-325 mg per tablets by 0 tabletIndications: mouth every 8 chronic pain (eight) hours as needed for moderate pain for up to 30 days .chronic pain. 10/08/2019 Discontinued (Reorder) HYDROcodone-acetaminophen Take 2 180 tablet 0 (NORCO) 10-325 mg per tablets by 0 tabletIndications: mouth every 6 chronic pain (six) hours as needed for moderate pain for up to 30 days .chronic pain. Max Daily Amount: 8 tablets 10/08/2019 Discontinued (Reorder) gabapentin (NEURONTIN) TAKE 3 270 capsule 0 300 mg capsule CAPSULES BY 0 MOUTH THREE TIMES DAILY 11/16/2019 Discontinued gabapentin (NEURONTIN) TAKE 3 270 capsule 0 300 mg capsule CAPSULES BY 0 MOUTH THREE TIMES DAILY 10/08/2019 Discontinued (Reorder) gabapentin (NEURONTIN) TAKE 3 270 capsule 0 300 mg capsule CAPSULES BY 0 MOUTH THREE TIMES DAILY 11/07/2019 Discontinued gabapentin (NEURONTIN) TAKE 3 270 capsule 0 300 mg capsule CAPSULES BY 0 MOUTH THREE TIMES DAILY 11/28/2019 Discontinued (Reorder) traMADoL (ULTRAM) 50 mg Take 1 tablet 180 tablet 0 tabletIndications: (50 mg total) 0 chronic pain by mouth every 6 (six) hours as needed for moderate pain for up to 30 days .chronic pain. 01/28/2020 Discontinued (Reorder) tiZANidine (ZANAFLEX) 4 Take 1 tablet 90 tablet 2 MG tablet (4 mg total) 0 by mouth 3 (three) times a day. 11/07/2019 Discontinued HYDROcodone-acetaminophen Take 2 180 tablet 0 (NORCO) 10-325 mg per tablets by 0 tabletIndications: mouth every 6 chronic pain (six) hours as needed for moderate pain for up to 30 days .chronic pain. Max Daily Amount: 8 tablets 11/12/2019 Discontinued (Reorder) HYDROcodone-acetaminophen Take 2 180 tablet 0 (NORCO) 10-325 mg per tablets by 0 tabletIndications: mouth every 8 chronic pain (eight) hours as needed for moderate pain for up to 30 days .chronic pain. 11/28/2019 Discontinued (Reorder) HYDROcodone-acetaminophen Take 2 180 tablet 0 (NORCO) 10-325 mg per tablets by 0 tabletIndications: mouth every 8 chronic pain (eight) hours as needed for moderate pain for up to 30 days .chronic pain. 01/28/2020 Discontinued (Reorder) HYDROcodone-acetaminophen Take 2 180 tablet 0 (NORCO) 10-325 mg per tablets by 0 tabletIndications: mouth every 8 chronic pain (eight) hours as needed for moderate pain for up to 30 days .chronic pain. 01/02/2020 Discontinued (Reorder) traMADoL (ULTRAM) 50 mg chronic pain. 180 tablet 1 tabletIndications: 1-2 tabs PO 0 chronic pain Q8H PRN pain 01/02/2020 Discontinued HYDROcodone-acetaminophen Take 2 180 tablet 0 (NORCO) 10-325 mg per tablets by 0 tabletIndications: mouth every 8 chronic pain (eight) hours as needed for moderate pain for up to 30 days .chronic pain. 01/11/2020 Discontinued (Reorder) HYDROcodone-acetaminophen Take 2 180 tablet 0 (NORCO) 10-325 mg per tablets by 0 tabletIndications: mouth every 8 chronic pain (eight) hours as needed for moderate pain for up to 30 days .chronic pain. 01/28/2020 Discontinued (Reorder) traMADoL (ULTRAM) 50 mg chronic pain. 180 tablet 1 tabletIndications: 1-2 tabs PO 0 chronic pain Q8H PRN pain 01/18/2020 acetaminophen-codeine Take 1 tablet 50 tablet 0 (TYLENOL WITH CODEINE #3) by mouth 0 300-30 mg per every 4 tabletIndications: acute (four) hours pain as needed for moderate pain for up to 7 days .acute pain. 01/31/2020 Discontinued (Reorder) HYDROcodone-acetaminophen Take 2 180 tablet 0 (NORCO) 10-325 mg per tablets by 0 tabletIndications: mouth every 8 chronic pain (eight) hours as needed for moderate pain for up to 30 days .chronic pain. Active Problems Problem Noted Date Other chronic pain 03/02/2019 Chronic prescription opiate use 03/02/2019 Other skin changes 03/02/2019 Secondary hypertension 03/20/2018 Incomplete tear of right rotator cuff 03/20/2018 Incomplete tear of left rotator cuff 03/20/2018 Rash 03/20/2018 Migraine 04/12/2017 Bilateral lumbar radiculopathy 12/20/2016 Myalgia 12/20/2016 Muscle spasm 12/20/2016 Osteoarthritis of both shoulders 12/20/2016 Cervical radicular pain 12/20/2016 Vitamin D deficiency 12/20/2016 Encounters Care Team Description Date Type Specialty Gosia Jones RN Bilateral lumbar radiculopathy; Myalgia; Muscle spasm; Cervical radicular pain; Other chronic pain 01/31/2020 Refill Physical Medicine a dc Lacey Anderson MD Bilateral lumbar radiculopathy (Primary Dx); Chronic prescription opiate use; Osteoarthritis of both shoulders, unspecified osteoarthritis type; Myalgia; Muscle spasm; Cervical radicular pain; Migraine without status migrainosus, not intractable, unspecified migraine type; Vitamin D deficiency; Other chronic pain 01/18/2020 Telemedicine Physical Medicine [facility] 01/18/2020 Travel Gosia Jones RN Other chronic pain (Primary Dx); Bilateral lumbar radiculopathy; Cervical radicular pain; Myalgia; Muscle spasm 01/11/2020 Telephone Physical Medicine a Lacey Flores MD Bilateral lumbar radiculopathy (Primary Dx); Myalgia; Muscle spasm; Cervical radicular pain; Other chronic pain; Migraine without status migrainosus, not intractable, unspecified migraine type; Vitamin D deficiency; Osteoarthritis of both shoulders, unspecified osteoarthritis type 01/02/2020 Telemedicine Physical Medicine a Lacey Flores MD 01/02/2020 Orders Only Physical Medicine a Lacey Flores MD Bilateral lumbar radiculopathy; Myalgia; Muscle spasm; Cervical radicular pain; Other chronic pain 11/28/2019 Telemedicine Physical Medicine a Lacey Flores MD 11/16/2019 Refill Physical Medicine a dc Rehabilitation Mercy Smith MA Bilateral lumbar radiculopathy; Myalgia; Muscle spasm; Cervical radicular pain; Other chronic pain 11/12/2019 Refill Physical Medicine a dc Rehabilitation Lacey Franco MD Nontraumatic incomplete tear of left rot ator cuff (Primary Dx); Bilateral lumbar radiculopathy; Myalgia; Muscle spasm; Cervical radicular pain; Other chronic pain; Nontraumatic incomplete tear of right rotator cuff 11/07/2019 Telemedicine Physical Medicine a dc Rehabilitation 11/05/2019 Travel Lacey Franco MD Other chronic pain (Primary Dx); Secondary hypertension; Migraine without status migrainosus, not intractable, unspecified migraine type; Vitamin D deficiency; Bilateral lumbar radiculopathy; Cervical radicular pain; Myalgia; Nontraumatic incomplete tear of left rotator cuff; Nontraumatic incomplete tear of right rotator cuff; Muscle spasm; Osteoarthritis of both shoulders, unspecified osteoarthritis type; Other skin changes; Rash; Chronic prescription opiate use 10/08/2019 Telemedicine Physical Medicine a dc Rehabilitation 10/08/2019 Lacey Berry MD 10/07/2019 Refill Physical Medicine a dc Rehabilitation 10/02/2019 Travel 09/20/2019 Travel Lacey Franco MD 09/13/2019 Refill Physical Medicine a dc Rehabilitation Lacey Franco MD Bilateral lumbar radiculopathy; Myalgia; Muscle spasm; Cervical radicular pain; Other chronic pain 09/10/2019 Telemedicine Physical Medicine a dc Gosia Lomeli RN 09/06/2019 Telephone Physical Medicine a dc Rehabilitation Gosia Jones RN Other chronic pain (Primary Dx); Bilateral lumbar radiculopathy; Myalgia; Muscle spasm; Cervical radicular pain 08/28/2019 Refill Physical Medicine a dc Rehabilitation 08/20/2019 Gosia Dykes RN 08/20/2019 Telephone Physical Medicine a dc Rehabilitation aLcey Franco MD Secondary hypertension (Primary Dx); Vitamin D deficiency; Bilateral lumbar radiculopathy; Cervical radicular pain; Myalgia; Other chronic pain; Nontraumatic incomplete tear of left rotator cuff; Nontraumatic incomplete tear of right rotator cuff; Muscle spasm; Osteoarthritis of both shoulders, unspecified osteoarthritis type; Other skin changes; Rash; Chronic prescription opiate use 08/14/2019 Telemedicine Physical Medicine a dc Rehabilitation 08/14/2019 Travel Marissa Lassiter RN 08/13/2019 Refill Physical Medicine a nd Rehabilitation 08/08/2019 Travel Lacey Franco MD Other chronic pain (Primary Dx); Vitamin D deficiency; Bilateral lumbar radiculopathy; Cervical radicular pain; Nontraumatic incomplete tear of left rotator cuff; Nontraumatic incomplete tear of right rotator cuff; Muscle spasm; Osteoarthritis of both shoulders, unspecified osteoarthritis type; Other skin changes; Rash; Chronic prescription opiate use 05/23/2019 Office Visit Physical Medicine a [facility] Rehabilitation Lacey Franco MD Other chronic pain (Primary Dx); Secondary hypertension; Bilateral lumbar radiculopathy; Cervical radicular pain; Myalgia; Nontraumatic incomplete tear of right rotator cuff; Chronic prescription opiate use; Other skin changes 03/02/2019 Office Visit Physical Medicine a [facility] Rehabilitation after 02/03/2019 Social History Date Tobacco Use Types Packs/Day Years Used Current Every Day Smoker Cigarettes 0.5 Smokeless Tobacco: Former User Tobacco Cessation: Counseling Given: Yes Comments: stopped thirty years ago Sex Assigned at Date Recorded Not on file Date Recorded COVID-19 Exposure Response 01/18/2020 12:26 PM CDT In the last month, have you been in contact with No / Unsure someone who was confirmed or suspected to have Coronavirus / COVID-19? 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 Blood Pressure 43 05/23/2019 1:17 PM FOOD SAFETY TECHNICIAN Pulse - - Temperature - - Respiratory Rate - - Oxygen Saturation - - Inhaled Oxygen Concentration - - Weight - - Height - - Body Mass Index Plan of Treatment Health Maintenance Due Date Last Done Comments COLONOSCOPY SCREENING 2006 SHINGLES VACCINES (#1) 2006 INFLUENZA VACCINE 12/08/2019 Procedures Comments Procedure Name Priority Date/Time Associated Diag nosis DRUG SCREEN Routine 05/29/2019 DRUG SCREEN Routine 03/08/2019 after 02/03/2019 Results * Drug Screen (05/29/2019) Only the most recent of 2 results within the time period is included. Narrative Performed At This result has an attachment that is n ot available. after 02/03/2019 Insurance Type Payer Benefit Subscriber ID Effective Phone Address Plan / Dates Group PPO HUMANA MEDICARE HUMANA [id number] MEDICARE resent PPO/PFFS/E RS [facility] Advance Directives For more information, please contact: [phone] Patient Retail Salesworker Explanation Type Date Recorded Advance Directives, Living Will and Medical Power of Technology Advisor
== END | disposition left against medical advice (07) ==
LOC: ER 22:16
DX: R07.9 Chest pain, unspecified (principal); F41.9 Anxiety disorder, unspecified; I10 Essential (primary) hypertension; I48.91 Unspecified atrial fibrillation; F32.9 Major depressive disorder, single episode, unspecified
CPT/HCPCS: 93005

== ENCOUNTER 2020-08-02 01:49 | Emergency (ER) | payer MEDICARE ==
[~2020-08-02] VITALS: Ht 177.8 cm; Wt 99.8 kg
== END 2020-08-02 02:15 | disposition home or self-care (01) ==
LOC: ER 01:53
DX: R00.2 Palpitations (principal); I10 Essential (primary) hypertension; I48.91 Unspecified atrial fibrillation; F32.9 Major depressive disorder, single episode, unspecified; M54.9 Dorsalgia, unspecified; G89.29 Other chronic pain
CPT/HCPCS: 93005; 99282